=== PATIENT | female | born 1990 | race Two or more races ===

== ENCOUNTER 2024-02-01 10:03 | Emergency (ER) | payer OTHER ==
[~2024-02-01] VITALS: Ht 152.4 cm; Wt 75.3 kg
[2024-02-01] MEDS ORDERED: DIPH2.5T73 PO (13:45)
[2024-02-01] MEDS ORDERED: ZOFR4T PO (13:45)
[2024-02-01 13:51] VITALS: BP 106/62; PULSE 84; RESP 16; TEMP 97.9; O2SAT 98
[2024-02-01] MEDS: DIPHENOXYLATE W/ATROPINE 2.5 MG TAB PO ONE (14:09)
== END 2024-02-01 14:11 | disposition home or self-care (01) ==
LOC: ER 10:03
DX: R19.7 Diarrhea, unspecified (principal); R11.0 Nausea